=== PATIENT | female | born 1970 | race Asian ===

== ENCOUNTER 2018-04-19 09:40 | Outpatient (CLI) | payer OTHER ==
--- NOTE | 2018-04-22 13:24 | Mammography Report ---
Reason: SCREENING FOR BREAST CANCER Procedure Date: 04/19/2018 Accession Number: [id number] / [id number] Procedure: MGN - Screening Mammo Dig Bilat CPT Code: FULL RESULT: EXAM: Screening Mammo Dig Bilat DATE: 04/19/2018 10:07 AM CLINICAL HISTORY: Routine screening TECHNIQUE: Bilateral CC and MLO views were obtained. COMPARISON: None available FINDINGS: The breasts demonstrate extremely dense parenchyma bilaterally, limiting the sensitivity of mammography.. There is an ovoid 1 cm mass in the posterior third left upper outer quadrant, possibly an intramammary lymph node. No other suspicious masses, clustered microcalcifications, or regions of architectural distortion are identified. IMPRESSION: Negative right breast. Needs additional evaluation left breast by ultrasound. RECOMMENDATION: Left breast ultrasound. BIRADS CATEGORY 0: Needs additional evaluation COMMENT: If prior mammograms become available for comparison, additional imaging/ultrasound may be unnecessary. STANDARD QUALIFYING STATEMENTS: 1. This examination was reviewed with the aid of Computer-Aided Detection (CAD). 2. A negative or benign imaging report should not delay biopsy if clinically suspicious findings are present. Consider surgical consultation if warrented. More than 5% of cancers are not identified by imaging. 3. Dense breasts may obscure an underlying neoplasm.
== END 2018-04-19 09:41 | disposition home or self-care (01) ==
LOC: DI.N 09:40
PROVIDERS: ATTEND Nurse Practitioner
DX: Z12.31 Encounter for screening mammogram for malignant neoplasm of breast (principal); R92.8 Other abnormal and inconclusive findings on diagnostic imaging of breast
CPT/HCPCS: 77067

== ENCOUNTER 2018-05-09 09:45 | Outpatient (CLI) | payer OTHER ==
--- NOTE | 2018-05-09 15:07 | Ultrasound Report ---
Reason: ABN MAMMO - LT SPEC VIEW US Procedure Date: 05/09/2018 Accession Number: [id number] / [id number] Procedure: US - Breast Unilateral Limited CPT Code: FULL RESULT: EXAM: Breast Unilateral Limited DATE: 05/09/2018 10:45 AM CLINICAL HISTORY: Focused diagnostic left breast ultrasound. The patient is recalled from screening for a ovoid 1 cm mass in the posterior third left upper outer quadrant. COMPARISON: 04/19/2018. TECHNIQUE: Targeted ultrasound was performed of the left breast in the area of clinical concern at 3 o'clock and 3 cm distance from the nipple. Color Doppler was employed as appropriate. FINDINGS: A wider than tall simple cyst measuring up to 1 cm is identified in the location corresponding to the mammographic finding, concordant. No suspicious masses are seen. IMPRESSION: Benign findings RECOMMENDATION: Recommend routine annual Screening mammography unless otherwise clinically indicated. BIRADS CATEGORY 2: Benign findings RADIA
== END 2018-05-09 09:46 | disposition home or self-care (01) ==
LOC: DI 09:45
PROVIDERS: ATTEND Nurse Practitioner
DX: N63.21 Unspecified lump in the left breast, upper outer quadrant (principal); R92.8 Other abnormal and inconclusive findings on diagnostic imaging of breast
CPT/HCPCS: 76642

== ENCOUNTER 2019-05-08 13:23 | Outpatient (CLI) | payer OTHER ==
--- NOTE | 2019-05-12 10:57 | Mammography Report ---
Reason: ROUTINE MAMMO Procedure Date: 05/08/2019 Accession Number: [id number] / [id number] Procedure: MGN - Screening Mammo w/Haresh CPT Code: Final Report FULL RESULT: EXAM: Screening Mammo w/Haresh DATE: 05/08/2019 1:48 PM CLINICAL HISTORY: Screening encounter. TECHNIQUE: (B) - Bilateral CC and MLO views were obtained. COMPARISON: 04/19/2018. PARENCHYMAL PATTERN: (D) - The breast(s) demonstrate(s) heterogeneously dense fibroglandular parenchyma. FINDINGS: The 3:00 1 cm left breast mass approximately 5 cm from the nipple which was identified in 2019 is again seen, sonographically defined as a simple cyst, typically benign. There are no suspicious masses, calcifications, or areas of distortion. IMPRESSION: Benign findings. BI-RADS category 2. RECOMMENDATION: (ANNUAL) - Recommend routine annual screening mammography. BI-RADS CATEGORY: (2) - Benign Findings. STANDARD QUALIFYING STATEMENTS: 1. This examination was not reviewed with the aid of Computer-Aided Detection (CAD). 2. A negative or benign imaging report should not preclude biopsy if clinically suspicious findings are present. 3. Dense breasts may obscure an underlying neoplasm. 4. This examination was reviewed with the aid of 3D breast imaging (tomosynthesis).
== END 2019-05-08 13:24 | disposition home or self-care (01) ==
LOC: DI.N 13:23
DX: Z12.31 Encounter for screening mammogram for malignant neoplasm of breast (principal)
CPT/HCPCS: 77063; 77067

== ENCOUNTER 2020-03-04 11:33 | Outpatient (CLI) | payer OTHER ==
[2020-03-04 14:47] LABS: BASOPHILS % (AUTO) 0.6 %; EOSINOPHILS # (AUTO) 0.3 10^3/uL (0.0-0.7); EOSINOPHILS % (AUTO) 5.7 %; HGB - HEMOGLOBIN 13.9 g/dL (12.0-16.0); LYMPHOCYTES # (AUTO) 1.7 10^3/uL (1.5-3.5); LYMPHOCYTES % (AUTO) 35.3 %; MEAN CORPUSCULAR HGB CONC 33.3 g/dL (32.0-36.0); MEAN PLATELET VOLUME 10.9 fL (7.9-10.8); MONOCYTES # (AUTO) 0.3 10^3/uL (0.0-1.0); MONOCYTES % (AUTO) 5.3 %; NEUTROPHILS # (AUTO) 2.6 10^3/uL (1.5-6.6); NEUTROPHILS % (AUTO) 52.9 %; PLT - PLATELET COUNT 188 10^3/uL (130-450); RED BLOOD COUNT 4.09 10^6/uL (4.20-5.40); WHITE BLOOD COUNT 4.9 x10^3/uL (4.8-10.8)
[2020-03-04 15:04] LABS: ALBUMIN 4.1 g/dL (3.2-5.5); ALBUMIN/GLOBULIN RATIO 1.6 (1.0-2.2); ALKALINE PHOSPHATASE 64 IU/L (42-121); ALT ALANINE AMINOTRANSFERASE 33 IU/L (10-60); AST ASPARTATE AMINOTRANSFERASE 26 IU/L (10-42); BILIRUBIN,TOTAL 0.8 mg/dL (0.2-1.0); BUN - BLOOD UREA NITROGEN 16 mg/dL (6-20); CALCIUM 8.9 mg/dL (8.5-10.3); CARBON DIOXIDE - CO2 27 mmol/L (21-32); CHLORIDE 104 mmol/L (101-111); CHOL/HDL RATIO 2.9 (<4.4); CHOLESTEROL 212 mg/dL; CREATININE 0.5 mg/dL (0.4-1.0); GLUCOSE 97 mg/dL (70-100); HDL CHOLESTEROL 72 mg/dL; LDL CHOLESTEROL,CALCULATED 129 mg/dL; LDL/HDL RATIO 1.8 (<4.4); SODIUM 138 mmol/L (135-145); TOTAL PROTEIN 6.7 g/dL (6.7-8.2); VLDL CHOLESTEROL 11 mg/dL
== END 2020-03-04 11:34 | disposition home or self-care (01) ==
LOC: LAB.N 11:33
PROVIDERS: ATTEND Nurse Practitioner Family
DX: Z00.00 Encounter for general adult medical examination without abnormal findings (principal); Z71.89 Other specified counseling
CPT/HCPCS: 36415; 80053; 80061; 83721; 84443; 85025; 86317; 86735; 86762; 86765; 86787

== ENCOUNTER 2020-03-19 16:14 | Outpatient (CLI) | payer OTHER ==
[2020-03-19 19:07] LABS: FOLATE 22.99 ng/mL (5.90 - >24.8)
== END 2020-03-19 23:59 | disposition home or self-care (01) ==
LOC: LAB.WCP 16:14
PROVIDERS: ATTEND Nurse Practitioner Family
DX: D53.9 Nutritional anemia, unspecified (principal)
CPT/HCPCS: 36415; 82607; 82746

== ENCOUNTER 2020-03-28 21:17 | Emergency (ER) | payer OTHER ==
--- NOTE | 2020-03-28 21:34 | ED Physician Documentation ---
History of Present Illness - Stated complaint Stated Complaint: FEVER - Chief complaint Chief Complaint: Fever - History obtained from History obtained from: Patient - History of Present Illness Timing: Today Pain level max: 0 Pain level now: 0 - Additonal information Additional information: c/o mild fatigue, myalgias since earlier today. Tmax at home 100.0. Review of Systems Constitutional: reports: Myalgias, Fatigue. denies: Fever (Tmax 100.0 at home (37.9 in ED triage)), Chills, Sweats Throat: denies: Sore throat Respiratory: denies: Dyspnea, Cough : denies: Dysuria PD PAST MEDICAL HISTORY - Past Medical History Past Medical History: No - Present Medications Home Medications: Ambulatory Orders Medication Instructions Recorded Confirmed No Known Home Medications 03/28/20 03/28/20 - Allergies Allergies/Adverse Reactions: Allergies Allergy/AdvReac Type Severity Reaction Status Date / Time No Known Drug Allergies Allergy Verified 03/28/20 21:23 - Living Situation Living Situation: reports: With spouse/s.o. Living Arrangement: reports: At home PD ED PE NORMAL - Vitals Vital signs reviewed: Yes - General General: Alert and oriented X 3, No acute distress, Well developed/nourished - HEENT HEENT: Moist mucous membranes - Neck Neck: Supple, no meningeal sign - Cardiac Cardiac: RRR, No murmur - Respiratory Respiratory: No respiratory distress, Clear bilaterally Results - Vitals Vitals: Vital Signs - 24 hr 03/28/20 03/28/20 21:23 23:20 Temperature 37.9 C 37.4 C Heart Rate 92 86 Respiratory 14 16 Rate Blood Pressure 161/75 H 143/78 H O2 Saturation 99 98 Oxygen O2 Source Room air - Labs Labs: Laboratory Tests 03/28/20 22:12 Nasal Adenovirus (PCR) NOT DETECTED Nasal B. parapertussis DNA (PCR) NOT DETECTED Nasal Coronavir 229E PCR NOT DETECTED Nasal Coronavir HKU1 PCR NOT DETECTED Nasal Coronavir NL63 PCR NOT DETECTED Nasal Coronavir OC43 PCR NOT DETECTED Nasal Enterovir/Rhinovir PCR NOT DETECTED Nasal Influenza B PCR NOT DETECTED Nasal Influenza A PCR NOT DETECTED Nasal Parainfluen 1 PCR NOT DETECTED Nasal Parainfluen 2 PCR NOT DETECTED Nasal Parainfluen 3 PCR NOT DETECTED Nasal Parainfluen 4 PCR NOT DETECTED Nasal RSV (PCR) NOT DETECTED Nasal B.pertussis DNA PCR NOT DETECTED Nasal C.pneumoniae (PCR) NOT DETECTED Javier Human Metapneumo PCR NOT DETECTED Nasal M.pneumoniae (PCR) NOT DETECTED Nasal SARS-CoV-2 (PCR) NOT DETECTED PD MEDICAL DECISION MAKING - ED course Complexity details: reviewed results, re-evaluated patient, considered differential, d/w patient ED course: Patient presents with mild fatigue, myalgias and Tmax at home 100.0 (37.9 in ED triage); her primary concern is COVID. Her respiratory panel, including COVID- 19, is negative Departure - Departure Disposition: 01 Home, Self Care Clinical Impression: Fever Qualifiers: Fever type: unspecified Qualified Code(s): R50.9 - Fever, unspecified Condition: Good Instructions: ED Fever Unconf Cause Follow-Up: DANTE BALDERAS, MSN, [employer] [Primary Care Provider] - Discharge Date/Time: 03/28/20 23:21
[2020-03-28 23:07] LABS: C. PNEUMONIAE- RESP PCR PANEL NOT DETECTED
[2020-03-28 23:21] VITALS: BP 143/78
== END 2020-03-28 23:21 | disposition home or self-care (01) ==
LOC: ED 21:17
DX: R50.9 Fever, unspecified (principal); R53.83 Other fatigue; M79.10 Myalgia, unspecified site; Z20.822 Contact with and (suspected) exposure to COVID-19
CPT/HCPCS: 0202U; 99283

== ENCOUNTER 2020-07-20 10:07 | Outpatient (CLI) | payer OTHER ==
--- NOTE | 2020-07-22 08:30 | Mammography Report ---
BILATERAL DIGITAL SCREENING MAMMOGRAM 3D/2D: 07/20/2020 CLINICAL: Routine screening. Comparison is made to exams dated: 05/08/2019 mammogram and 04/19/2018 mammogram - [facility]. The tissue of both breasts is heterogeneously dense. This may lower the sensitivity of marcela mography. There is an irregular equal density asymmetry with an indistinct margin in the left breast posterior depth inferior region seen on the mediolateral oblique view only. No other significant masses, calcifications, or other findings are seen in either breast. IMPRESSION: INCOMPLETE: NEEDS ADDITIONAL IMAGING EVALUATION The irregular equal density asymmetry in the left breast is indeterminate. Mediolateral and spot com pression views as well as additional views with possible ultrasound are recommended. This exam was interpreted at Station ID: [id number]. NOTE: For mammograms, a report in lay terms will be sent to the patient. Approximately 15% of breast malignancies will not be visualized mammographically. In the management of a palpable breast mass, a negative mammogram must not discourage biopsy of a clinically suspicious lesion. Electronically Signed By: Zana Brito M.D. ddp/:07/20/2020 10:49:37 ACR BI-RADS Category 0: Incomplete 3340F PARENCHYMAL PATTERN: (D) - The breast(s) demonstrate(s) heterogeneously dense fibroglandular martell jhaveri. BI-RADS CATEGORY: (0) - 0 Mammo and US [id number] Immediate follow-up LATERALITY: (B)
== END 2020-07-20 10:08 | disposition home or self-care (01) ==
LOC: DI 10:07
DX: Z12.31 Encounter for screening mammogram for malignant neoplasm of breast (principal); R92.8 Other abnormal and inconclusive findings on diagnostic imaging of breast

== ENCOUNTER 2020-08-12 12:38 | Outpatient (CLI) | payer OTHER ==
--- NOTE | 2020-08-13 11:57 | Mammography Report ---
UNILATERAL LEFT DIGITAL DIAGNOSTIC MAMMOGRAM 3D/2D: 08/12/2020 CLINICAL: Patient returns today to evaluate an architectural distortion in the left breast. Comparison is made to exams dated: 07/20/2020 mammogram, 05/08/2019 mammogram, 05/09/2018 ultrasound, a nd 04/19/2018 mammogram - [facility]. The tissue of left breast is heterogeneously d ense. This may lower the sensitivity of mammography. The possible irregular equal density asymmetry with an indistinct margin in the left breast posterior depth inferior region seen on the mediolateral oblique view is not seen in additional views and is l ess prominent on the current study. No other significant masses or calcifications are seen in the breast. IMPRESSION: INCOMPLETE: NEEDS ADDITIONAL IMAGING EVALUATION The possible irregular equal density asymmetry in the left breast most likely is fibroglandular tissu e but remains indeterminate. Ultrasound is recommended for full evaluation of this area. This was pe rformed immediately following this exam. This exam was interpreted at Station ID: [id number]. NOTE: For mammograms, a report in lay terms will be sent to the patient. Approximately 15% of breast malignancies will not be visualized mammographically. In the management of a palpable breast mass, a negative mammogram must not discourage biopsy of a clinically suspicious lesion. Electronically Signed By: Shayla garcia/:08/12/2020 13:31:10 ACR BI-RADS Category 0: Incomplete 3340F PARENCHYMAL PATTERN: (D) - The breast(s) demonstrate(s) heterogeneously dense fibroglandular parfreddyy ma. BI-RADS CATEGORY: (0) - 0 Ultrasound [id number] Immediate follow-up LATERALITY: (B)
--- NOTE | 2020-08-13 11:57 | Ultrasound Report ---
LIMITED ULTRASOUND OF LEFT BREAST: 08/12/2020 CLINICAL: Patient returns today to evaluate a focal asymmetry in the left breast. Comparison is made to exams dated: 08/12/2020 mammogram, 07/20/2020 mammogram, 05/08/2019 mammogram, 04/13 ultrasound, and 04/19/2018 mammogram - [facility] with [facility]. Color flow and real-time ultrasound of the left breast 4-8 o'clock region were performed. Rudolph scal e images of the real-time examination were reviewed. There are two cystic structures in the left breast at 5 o'clock posterior depth 6 cm from the nipple, the larger measures 0.5 cm x 0.5 cm x 0.4 cm and is hypoechoic with internal echoes. Color flow im aging demonstrates that there is no vascularity present. The smaller is a simple cyst measuring 0.3 cm. It is unclear if these findings correspond to the screening mammogram finding which partilally re solves with special views. IMPRESSION: PROBABLY BENIGN The 0.5 cm complicated cyst in the 4:00 left breast is probably benign and is unclear if it correspon ds to the mammogram finding. A follow-up left mammogram and an ultrasound in 6 months is recommended to demonstrate stability of a ll findings Findings and recommendations were conveyed to the patient at time of exam. . This exam was interpreted at Station ID: [id number]. Electronically Signed By: Shayla garcia/:08/12/2020 13:59:06 Ultrasound BI-RADS: 3 Probably benign BI-RADS CATEGORY: (3) - 3 Mammo and US [id number] 6 month follow-up LATERALITY: (L)
== END 2020-08-12 12:39 | disposition home or self-care (01) ==
LOC: DI 12:38
PROVIDERS: ATTEND Nurse Practitioner Family
DX: R92.8 Other abnormal and inconclusive findings on diagnostic imaging of breast (principal); N60.02 Solitary cyst of left breast

== ENCOUNTER 2020-11-03 10:07 | Outpatient (CLI) | payer OTHER ==
[2020-11-03 10:58] VITALS: BP 105/70
--- NOTE | 2020-11-03 10:58 | SLEEP CARE CONSULTATION ---
Information from patient questionnaire entered by Teresa Jimenez. I have reviewed and concur with the information entered by Teresa Jimenez. This document represents the service I personally performed and the decisions made by me, Rocío Lea ARNP. History of Present Illness Service Date and Time: 11/03/2020 1007 Reason for Visit: New patient Chief Complaint: reports: Unrefreshed sleep, Snoring, Excessive daytime sleepiness, Frequent awakenings at night Date of Onset: many years, 3 Usual bedtime: 12 am Time it takes to fall asleep: 30 minutes Snores at night: Yes Observed to quit breathing while asleep: No (doesn't sleep in same room with ) Sleeps alone due to snoring: Yes Number of times waking at night: 4 Reasons for waking at night: reports: Bathroom. denies: Choking, Gasping for air Toss, Turn, or Twitch while sleeping: Yes Recalls having dreams: Yes Usually gets out of bed at: anytime; ususally about 12 noon Feels refreshed in the morning: Yes (sometimes) Morning headache: No Sleepy or fatigued during the day: Yes Ever fallen asleep while driving: Yes (drowsy driving, no accidents) Takes day naps: Yes (daily for about 30 mins to 1 hour) Dreams during day naps: No Prior sleep studies: No Additional HPI information: I had the pleasure of seeing BEBA HARVEY today regarding the possibility of her having a sleep disorder. Her current complaints are frequent night awakenings. She states she "doesn't have good sleep" and has high blood pressure. Her is a nurse practitioner who has been on a PAP machine for many years. He has told her that she snores loudly and they sleep in separate rooms. He has not told her she has any pauses in breathing or gasping/choking in her sleep. They think that maybe her hypertension is due to not sleeping well and that she may have sleep apnea. She feels like she needs to sleep around the clock to feel rested. She takes a nap every day. She does not go to sleep until about midnight and then gets up about noon or later if she wants. She has no set schedule and does not work outside of home. She states her parents both snored loudly when she was a child. They lived in [place] and were never tested for sleep apnea. 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 Patient is and lives in [place]. Have you smoked in the past 12 months: No Alcohol use: No Caffeine use: No Family History Family history of sleep disordered breathing: Yes Family Hx Sleep Apnea: Mother: Snoring, Father: Snoring Allergies and Home Medications Drug allergies reviewed: Yes (NKDA) Home medication list reviewed: Yes Allergy and home medication list: Amlodipine Besylate 5 mg daily Review of Systems Cardiovascular: reports: high blood pressure Gastrointestinal: denies: heartburn Urinary: reports: frequency Psychiatric: denies: anxiety, depression Ear/Nose/Throat: denies: injury to nose, tonsillectomy, wisdom teeth removed Immunologic: reports: sneezing, allergies to food or environment Physical Exam Blood Pressure: 105/70 Cuff size: regular Heart Rate: 63 O2 Saturation: 100 Height: 5 ft 6 in Weight: 132 lb Body Mass Index: 21.3 BMI Classification: Healthy weight Neck circumference: 13 (inches) Mouth and throat: narrow oropharynx Soft palate: long Hard palate: normal Uvula: normal Uvula visualization: 50% Mallampati Class II Tongue: enlarged in size with teeth coley on lateral edges Tonsils: absent bilaterally Neck: normal w/o lymphadenopathy or thyromegaly Heart: regular rate and rhythm, murmur Lungs: clear bilaterally Impression and Plan 1. Suspected Obstructive Sleep Apnea-Hypopnea Syndrome, as suggested by a history of loud and irregular snoring, frequent awakening during the night, unrefreshed sleep, cognitive impairment, and excessive daytime sleepiness. Narrow oropharynx and obesity are common predisposing factors for obstructive sleep apnea-hypopnea syndrome. I recommend proceeding to polysomnography to confirm the diagnosis and to assess severity. If the patient has significant sleep disordered breathing, a manual CPAP titration study will also be performed to find the optimal treatment pressure. I informed the patient of what the sleep studies involve and after some discussion, obtained agreement to proceed. The pathophysiology of obstructive sleep apnea-hypopnea syndrome was discussed with the patient and health risks of cardiovascular and cerebrovascular disease if not treated. AAS brochure for obstructive sleep apnea-hypopnea syndrome given and reviewed. Risks of drowsy driving discussed in detail and patient advised to avoid long distance driving and to cotton puller at the first sign of drowsiness. Patient agreed to plan. * Schedule polysomnography +- manual CPAP titration study and return in 1-2 weeks after the study to discuss result and initiate therapy. * Avoid long distance driving or driving when feeling sleepy. * Avoid alcohol, sedative and muscle relaxant around bedtime. * Attempt to lose weight. * Review instructions provided by trained office staff on how to prepare for the sleep study. * Return for follow-up after sleep study completed. Counseling Topics: Weight control (at a healthy weight) Visit Type: In Office Time Spent with Patient (minutes): 31 Provider Statement: I spent 100% of the Face to Face Visit with the patient with greater than 50% spent counseling the patient and coordination of care.
== END 2020-11-03 10:08 | disposition home or self-care (01) ==
LOC: SC 10:07
PROVIDERS: ATTEND Nurse Practitioner Family
DX: G47.10 Hypersomnia, unspecified (principal); G47.8 Other sleep disorders; R06.83 Snoring; R41.89 Other symptoms and signs involving cognitive functions and awareness
CPT/HCPCS: 99203; 99212

== ENCOUNTER 2020-11-16 10:06 | Day surgery (SDC) | payer OTHER ==
[2020-11-16 10:25] LABS: HCG UR QUAL NEGATIVE
[2020-11-16] MEDS ORDERED: LACTATED RINGERS 1,000 ML IV ONE ×2 (10:38→12:14)
[2020-11-16] MEDS ORDERED: fentaNYL 250 MCG/5 ML VIAL ONE (11:35)
[2020-11-16] MEDS ORDERED: MIDAZOLAM 2 MG/2 ML VIAL ONE ×2 (11:35→11:56)
[2020-11-16 12:58] VITALS: BP 114/56
== END 2020-11-16 10:07 | disposition home or self-care (01) ==
LOC: SDS 10:06
PROVIDERS: ATTEND Surgery
DX: Z12.11 Encounter for screening for malignant neoplasm of colon (principal); K57.30 Diverticulosis of large intestine without perforation or abscess without bleeding; K64.8 Other hemorrhoids; K64.4 Residual hemorrhoidal skin tags
CPT/HCPCS: 45378; 81025; J3010; J7120

== ENCOUNTER 2021-02-15 09:33 | Outpatient (CLI) | payer OTHER | END 2021-02-15 09:34 | disposition home or self-care (01) | LOC: SC 09:33 | PROVIDERS: ATTEND Nurse Practitioner Family | DX: G47.10 Hypersomnia, unspecified (principal); G47.8 Other sleep disorders; R06.83 Snoring; R09.02 Hypoxemia; I10 Essential (primary) hypertension | CPT/HCPCS: 95806 ==

== ENCOUNTER 2021-02-17 12:30 | Outpatient (CLI) | payer OTHER | END 2021-02-17 23:59 | disposition home or self-care (01) | LOC: SC 12:30 | PROVIDERS: ATTEND Nurse Practitioner Family | DX: G47.10 Hypersomnia, unspecified (principal); G47.8 Other sleep disorders; R06.83 Snoring; R41.89 Other symptoms and signs involving cognitive functions and awareness | CPT/HCPCS: 95806 ==

== ENCOUNTER 2021-03-15 12:53 | Outpatient (CLI) | payer OTHER ==
[2021-03-15 13:30] VITALS: BP 134/74
--- NOTE | 2021-03-15 13:30 | SLEEP CARE CONSULTATION ---
Information from patient questionnaire entered by Ginette Gastelum MA. I have reviewed and concur with the information entered by Ginette Gastelum MA. This document represents the service I personally performed and the decisions made by , Rocío Lea ARNP. History of Present Illness Service Date and Time: 03/15/2021 1253 Initial [place] Sleepiness Scale score: 15 Current [place] Sleepiness Scale score: 16 (2021) Additional HPI information: BEBA HARVEY returns for follow up and results of the recently performed home sleep study. The patient was informed of the following findings: No significant sleep disordered breathing with an average AHI of 2.6 and dami oxygen saturation of 88%. I explained the pathophysiology behind obstructive sleep apnea. Patient does not have sleep apnea and was advised how weight gain could increase the risk of developing sleep apnea in the future. Patient has light snoring. Snoring can be reduced by weight loss. Weight loss is best achieved with diet consult. Patient instructed to contact PCP for referral. Snoring can also be treated with an oral appliance from a dentist. Advised to check insurance coverage. In addition, an ENT evaluation can be do to see if other treatment is indicated. Patient counseled not drink alcohol less than 4 hours before bedtime as it can increase snoring and apnea. Patient was cautioned about risks of drowsy driving until sleepiness symptoms resolve. Sleep Study - Results Prior sleep studies: No Polysomnography/Home Sleep Study results: Physician Impression: The quality of the study is good. The length of the study is adequate (> 240 minutes). Please also see the tabulated and graphic data. 1. No significant sleep disordered breathing, with an AHI of 2.6/hr and dami SaO2 of 88%. During the study, the patient had 6 apneas (6 obstructive, 0 central, 0 mixed) and 14 hypopneas. The longest episode lasted 80.5 seconds. The few respiratory events occurred more frequently during supine sleep (supine AHI was 3.9 and non-supine, 0.66). 2. Hypoxemia (ICD-10 R09.02), minimal, with the lowest oxygen saturation of 88 % and 0.2 minutes with SaO2 under 90%. Baseline oxygen saturation was normal (Average oxygen saturation was 95%). Allergies and Home Medications Home medication list reviewed: Yes (no changes) Review of Systems Review of systems same as previous: Yes (no changes) Physical Exam Vital signs obtained and entered by: Miles GASTELUM CMA AAKEN Blood Pressure: 134/74 (LEFT) Cuff size: wrist Heart Rate: 70 O2 Saturation: 100 (PAPER MASK) Height: 5 ft 4 in Weight: 128 lb 6.4 oz Body Mass Index: 22.0 BMI Classification: Healthy weight Impression and Plan 1. Suspected Obstructive Sleep Apnea-Hypopnea Syndrome, as suggested by a history of loud and irregular snoring, fatigue and excessive daytime sleepiness. Her [place] is 16/24. She completed a HST which was not conclusive for sleep disordered breathing but because of her level of fatigue and her supine AHI of 3.9, I would like to retest with an in lab PSG. Patient voice agreement. The pathophysiology of obstructive sleep apnea-hypopnea syndrome was discussed with the patient and health risks of cardiovascular and cerebrovascular disease if n ot treated. Risks of drowsy driving discussed in detail and patient advised to avoid long distance driving and to machine puller over at the first sign of drowsiness. Patient also encouraged to try to sleep on her side and use positioning belt like Zzoma to keep off her back to see if this will control her snoring at home. Patient agreed to plan. * Schedule polysomnography. * Avoid long distance driving or driving when feeling sleepy. * Avoid alcohol, sedative and muscle relaxant around bedtime. * Maintain a healthy weight. * Review instructions provided by trained office staff on how to prepare for the sleep study. * Return for follow-up after sleep study completed. Counseling Topics: Sleeping position, Weight control Visit Type: In Office Time Spent with Patient (minutes): 19 Provider Statement: I spent 100% of the Face to Face Visit with the patient with greater than 50% spent counseling the patient and coordination of care.
== END 2021-03-15 12:54 | disposition home or self-care (01) ==
LOC: SC 12:53
PROVIDERS: ATTEND Nurse Practitioner Family
DX: R06.83 Snoring (principal); G47.8 Other sleep disorders; G47.10 Hypersomnia, unspecified; R41.89 Other symptoms and signs involving cognitive functions and awareness
CPT/HCPCS: 99212

== ENCOUNTER 2021-03-17 08:45 | Outpatient (CLI) | payer OTHER ==
--- NOTE | 2021-03-18 08:18 | Mammography Report ---
UNILATERAL LEFT DIGITAL DIAGNOSTIC MAMMOGRAM 3D/2D: 03/17/2021 CLINICAL: Patient returns for a 6 month follow up of the left breast. Comparison is made to exams dated: 08/12/2020 ultrasound, 08/12/2020 mammogram, 07/20/2020 mammogram, 04/13 mammogram, 05/09/2018 ultrasound, and 04/19/2018 mammogram - [facility]. The t issue of left breast is heterogeneously dense. This may lower the sensitivity of mammography. The possible irregular asymmetry in the left breast posterior depth inferior region seen on the medio lateral oblique view only is no longer seen and is consistent with fibroglandular tissue. No other significant masses or calcifications are seen in the breast. IMPRESSION: INCOMPLETE: NEEDS ADDITIONAL IMAGING EVALUATION Targeted ultrasound is recommended for follow up of the complicated cyst in the left breast at the 4 o'clock position 6 cm from the nipple seen on the prior ultrasound dated 08/12/2020. The ultrasound was originally scheduled on the same day as this exam, but due to delays the patient will return for fol low up ultrasound at the earliest possible convenience. This exam was interpreted at Station ID: [id number]. NOTE: For mammograms, a report in lay terms will be sent to the patient. Approximately 15% of breast malignancies will not be visualized mammographically. In the management of a palpable breast mass, a negative mammogram must not discourage biopsy of a clinically suspicious lesion. Electronically Signed By: Brandon cooley/luis:03/17/2021 11:33:48 ACR BI-RADS Category 0: Incomplete 3340F PARENCHYMAL PATTERN: (D) - The breast(s) demonstrate(s) heterogeneously dense fibroglandular martell jhaveri. BI-RADS CATEGORY: (0) - 0 Ultrasound [id number] Immediate follow-up LATERALITY: (L)
== END 2021-03-17 08:46 | disposition home or self-care (01) ==
LOC: DI 08:45
PROVIDERS: ATTEND Nurse Practitioner Family
DX: N60.02 Solitary cyst of left breast (principal)

== ENCOUNTER 2021-03-29 08:17 | Outpatient (CLI) | payer OTHER ==
--- NOTE | 2021-03-30 11:57 | Ultrasound Report ---
LIMITED ULTRASOUND OF LEFT BREAST: 03/29/2021 CLINICAL: Short term follow up for the left breast. Comparison is made to exams dated: 03/17/2021 mammogram, 08/12/2020 ultrasound, 08/12/2020 mammogram, 07/20 mammogram, 05/08/2019 mammogram, and 05/09/2018 ultrasound - Located within [facility]. Color flow and real-time ultrasound of the left breast 4 o'clock region were performed on the areas of interest. Rudolph scale images of the real-time examination were reviewed. There is a stable 0.5 cm x 0.4 cm x 0.5 cm oval cyst in the left breast at 4 o'clock middle depth 6 c m from the nipple. This oval cyst is hypoechoic with a well-defined boundary, internal echoes, and p osterior acoustic enhancement. Color flow imaging demonstrates that there is no vascularity present. There is an adjacent 0.3 x 0.3 x 0.3 cm small round cyst or bilobed component of the larger cyst wit h demonstrates indistinct internal echoes. No associated vascularity on color Doppler interrogation. This is stable in appearance. IMPRESSION: PROBABLY BENIGN The bilobed or 2 adjacented cysts in the left breast are consistent with complicated cysts and are pr obably benign. A follow-up ultrasound in 6 months is recommended. A follow-up ultrasound in 6 months is recommended to demonstrate stability. This exam was interpreted at Station ID: [id number]. Electronically Signed By: Zana Brito M.D. ddp/:03/29/2021 11:29:06 Ultrasound BI-RADS: 3 Probably benign BI-RADS CATEGORY: (3) - 3 Ultrasound [id number] 6 month follow-up LATERALITY: (B)
== END 2021-03-29 08:18 | disposition home or self-care (01) ==
LOC: DI 08:17
PROVIDERS: ATTEND Nurse Practitioner Family
DX: R92.8 Other abnormal and inconclusive findings on diagnostic imaging of breast (principal); N60.02 Solitary cyst of left breast

== ENCOUNTER 2021-05-10 09:55 | Outpatient (CLI) | payer OTHER ==
[2021-05-10 12:04] LABS: BASOPHILS # (AUTO) 0.1 10^3/uL (0.0-0.1); EOSINOPHILS # (AUTO) 0.3 10^3/uL (0.0-0.7); EOSINOPHILS % (AUTO) 5.7 %; HCT - HEMATOCRIT 40.8 % (37.0-47.0); LYMPHOCYTES # (AUTO) 1.6 10^3/uL (1.5-3.5); LYMPHOCYTES % (AUTO) 31.3 %; MEAN CORPUSCULAR HEMOGLOBIN 33.9 pg (27.0-31.0); MEAN CORPUSCULAR HGB CONC 34.3 g/dL (32.0-36.0); MEAN CORPUSCULAR VOLUME 98.8 fL (81.0-99.0); MEAN PLATELET VOLUME 10.3 fL (7.9-10.8); MONOCYTES # (AUTO) 0.3 10^3/uL (0.0-1.0); MONOCYTES % (AUTO) 6.5 %; NEUTROPHILS # (AUTO) 2.9 10^3/uL (1.5-6.6); NEUTROPHILS % (AUTO) 55.3 %; PLT - PLATELET COUNT 181 10^3/uL (130-450); RED BLOOD COUNT 4.13 10^6/uL (4.20-5.40); RED CELL DISTRIBUTION WIDTH 11.7 % (12.0-15.0); WHITE BLOOD COUNT 5.2 x10^3/uL (4.8-10.8)
[2021-05-10 12:28] LABS: THYROID STIMULATING HORMONE 1.8 uIU/mL (0.34-5.60)
[2021-05-10 12:35] LABS: ALBUMIN 4.3 g/dL (3.2-5.5); ALBUMIN/GLOBULIN RATIO 1.3 (1.0-2.2); ALKALINE PHOSPHATASE 59 IU/L (42-121); ALT ALANINE AMINOTRANSFERASE 46 IU/L (10-60); AST ASPARTATE AMINOTRANSFERASE 48 IU/L (10-42); BILIRUBIN,TOTAL 0.6 mg/dL (0.2-1.0); BUN - BLOOD UREA NITROGEN 21 mg/dL (6-20); CALCIUM 9.3 mg/dL (8.5-10.3); CARBON DIOXIDE - CO2 28 mmol/L (21-32); CHLORIDE 105 mmol/L (101-111); CHOL/HDL RATIO 3.5 (<4.4); CHOLESTEROL 206 mg/dL; CREATININE 0.6 mg/dL (0.4-1.0); GFR - MDRD 105 (>89); GLUCOSE 106 mg/dL (70-100); HDL CHOLESTEROL 59 mg/dL; LDL CHOLESTEROL,CALCULATED 135 mg/dL; LDL/HDL RATIO 2.3 (<4.4); POTASSIUM 3.9 mmol/L (3.5-5.0); SODIUM 141 mmol/L (135-145); TOTAL PROTEIN 7.5 g/dL (6.7-8.2); TRIGLYCERIDES 60 mg/dL; VLDL CHOLESTEROL 12 mg/dL
== END 2021-05-10 09:56 | disposition home or self-care (01) ==
LOC: LAB.N 09:55
PROVIDERS: ATTEND Physician Assistant Medical
DX: Z00.00 Encounter for general adult medical examination without abnormal findings (principal); E78.00 Pure hypercholesterolemia, unspecified
CPT/HCPCS: 36415; 80053; 80061; 83721; 84443; 85025

== ENCOUNTER 2021-05-11 20:30 | Outpatient (CLI) | payer OTHER | END 2021-05-11 23:59 | disposition home or self-care (01) | LOC: SC 20:30 | PROVIDERS: ATTEND Nurse Practitioner Family | DX: R06.83 Snoring (principal); R53.83 Other fatigue; G47.10 Hypersomnia, unspecified | CPT/HCPCS: 95810 ==

== ENCOUNTER 2021-05-23 08:00 | Outpatient (CLI) | payer OTHER ==
[2021-05-23 18:20] LABS: BILIRUBIN,URINE NEGATIVE (NEGATIVE); GLUCOSE, URINE (UA) NEGATIVE (NEGATIVE); KETONES,URINE (UA) NEGATIVE (NEGATIVE); LEUKOCYTE ESTERASE, URINE NEGATIVE (NEGATIVE); NITRITE,URINE NEGATIVE (NEGATIVE); OCCULT BLOOD,URINE TRACE-INTA (NEGATIVE); PROTEIN,URINE NEGATIVE (NEGATIVE); UROBILINOGEN,URINE 0.2 (NORMAL) E.U./dL (NORMAL)
[2021-05-23 18:23] LABS: CLARITY,URINE CLOUDY (CLEAR)
[2021-05-23 19:21] LABS: AMORPHOUS SEDIMENT,UR Few /LPF; BACTERIA,URINE Few /HPF (None Seen); RBC,URINE 0-5 /HPF (0-5); SQUAMOUS EPITHELIAL CELL,UR RARE Squamous (<= Few); WBC,URINE 0-3 /HPF (0-5)
[2021-05-23 19:22] LABS: CRYSTALS,URINE 6-10 Calcium Oxalate /LPF
== END 2021-05-23 23:59 ==
LOC: LAB.R 08:00
PROVIDERS: ATTEND Nurse Practitioner
DX: R31.9 Hematuria, unspecified (principal)
CPT/HCPCS: 81001; 81003; 87086

== ENCOUNTER 2021-06-01 20:53 | Outpatient (CLI) | payer OTHER ==
--- NOTE | 2021-06-02 09:40 | Ultrasound Report ---
PROCEDURE: Retroperitoneal INDICATIONS: HEMATURIA TECHNIQUE: Real-time scanning was performed of the retroperitoneal organs, with image documentation. COMPARISON: None. FINDINGS: Kidneys: Kidneys are normal in size. Right kidney measures 10 point cm long; left kidney measures 1 0.0 cm long. Right renal cortical thickness is 1.7 cm; left renal cortical thickness is 1.7 cm. No solid masses or hydronephrosis. Punctate areas of increased echogenicity are noted bilaterally. There is a focus of decreased echogenicity within the inferior right renal pole measuring 3.2 x 2.1 x 2.1 cm. Bladder: Prevoid volume 4 89 cc, post void residual 8 cc. Ureteral jets are identified bilaterally. N o focal bladder masses are identified. IMPRESSION: Punctate nonobstructing foci bilaterally suspected to represent calcifications. Focus of decreased echogenicity is noted within the inferior right renal pole. It is suboptimally vis ualized. Pelvis could represent a simple cyst, is not well-characterized. CT or MRI with renal protoc ol is recommended for further evaluation for determination of simple/complex cyst versus other etiolo gy. Reviewed by: Kimmie Ashton MD on 06/02/2021 9:39 AM PDT Approved by: Kimmie Ashton MD on 06/02/2021 9:39 AM PDT Station ID: [id number]
== END 2021-06-01 20:54 | disposition home or self-care (01) ==
LOC: DI 20:53
PROVIDERS: ATTEND Nurse Practitioner
DX: R31.9 Hematuria, unspecified (principal)

== ENCOUNTER 2021-07-27 08:30 | Outpatient (CLI) | payer OTHER ==
[2021-07-27 08:56] VITALS: BP 150/97
--- NOTE | 2021-07-27 08:56 | SLEEP CARE CONSULTATION ---
Information from patient questionnaire entered by Ginette Gastelum MA. I have reviewed and concur with the information entered by Ginette Gastelum MA. This document represents the service I personally performed and the decisions made by , Rocío Lea ARNP. History of Present Illness Service Date and Time: 07/27/2021 0830 Initial [place] Sleepiness Scale score: 15 Current [place] Sleepiness Scale score: 16 (07/2021) Additional HPI information: BEBA HARVEY returns for follow up and results of the recently performed polysomnography. The patient was informed of the following findings: No significant sleep disordered breathing with an average AHI of 2.2 and dami oxygen saturation of 91%. Patient had 2 prolonged awakenings after sleep onset during the study. I explained the pathophysiology behind obstructive sleep apnea. Patient does not have sleep apnea and was advised how weight gain could increase the risk of developing sleep apnea in the future. Patient has light snoring. Patient instructed to contact PCP for referral. Snoring can also be treated with an oral appliance from a dentist. Advised to check insurance coverage. In addition, an ENT evaluation can be do to see if other treatment is indicated. Patient does not drink alcohol. Patient was cautioned about risks of drowsy driving until sleepiness symptoms resolve. Sleep Study - Results Type of Sleep Study: Polysomnography (F/ U POLY, 05/11/2021 [facility],) Prior sleep studies: No Polysomnography/Home Sleep Study results: IMPRESSION: The quality of the study is good. The patient had slightly reduced sleep efficiency due to two prolonged awakenings after the sleep onset. The sleep architecture was relatively normal considering the first-night effect. Respiratory monitoring showed no significant sleep disordered breathing (AHI = 2.2) or hypoxia (dami oxygen saturation of 91%). The few respiratory events occurred mainly during supine sleep (supine AHI = 3.2; non-supine = 0.43). Snore was infrequent and light in intensity. There was no significant periodic leg movement of sleep. Cardiac rhythm was normal sinus rhythm without significant arrhythmia. No abnormal behavior (parasomnia) observed during the night. Allergies and Home Medications Known drug allergies: No Drug allergies reviewed: Yes Home medication list reviewed: Yes (no changes) Allergy and home medication list: Allergies No Known Drug Allergies Allergy (Verified 03/28/20 21:23) Review of Systems Review of systems same as previous: Yes (no changes) Physical Exam Vital signs obtained and entered by: Miles GASTELUM CMA AAKEN Blood Pressure: 150/97 (RESP 16, PULSE 63, LEFT,) Cuff size: wrist Heart Rate: 61 O2 Saturation: 98 (PAPER MASK) Height: 5 ft 4 in Weight: 123 lb 8 oz (CLOTHES) Body Mass Index: 21.2 BMI Classification: Healthy weight Impression and Plan Snoring but no significant sleep disordered breathing. An oral appliance can also be used for snoring if this is an issue. This would require a dental consultation. Patient cautioned not to use other online appliances as can cause bite issues. A list of accredited dentists in [facility] and one local dentist who makes oral appliances is available in office. Patient is advised to check if insurance will cover. An ENT consult can also be helpful to determine if any other treatment is an option. Patient had two prolong awakenings during the night of the study. Insomnia is probable. Insomnia is generally caused by an irregular sleep schedule, spending too much time in bed, napping, caffeine, electronics, lack of a relaxing bedtime ritual and clock watching. Other factors can include anxiety/depression, pain, medications, and obstructive sleep apnea. * Maintain a healthy weight * Avoid alcohol consumption near bedtime * The patient is cautioned about driving until sleepiness is completely resolved. * Return as needed for follow up. I will response compliance at that time. Counseling Topics: Weight control Visit Type: In Office Time Spent with Patient (minutes): 15 Provider Statement: I spent 100% of the Face to Face Visit with the patient with greater than 50% spent counseling the patient and coordination of care.
== END 2021-07-27 08:31 | disposition home or self-care (01) ==
LOC: SC 08:30
PROVIDERS: ATTEND Nurse Practitioner Family
DX: R06.83 Snoring (principal)
CPT/HCPCS: 99212

== ENCOUNTER 2021-11-25 06:50 | Outpatient (CLI) | payer OTHER ==
--- NOTE | 2021-11-25 09:54 | Ultrasound Report ---
PROCEDURE: Pelvic w/Transvaginal INDICATIONS: ABN UTERINE BLEEDING TECHNIQUE: Real-time scanning was performed of the pelvic organs, with image documentation. Additional endovagi nal scanning was necessary due to incomplete visualization of the adnexal and endometrial structures by transabdominal scanning. COMPARISON: None. FINDINGS: Uterus: Uterus is retroverted and borderline enlarged in size at 10.5 x 5.1 x 6.7 cm. The myometriu m is heterogeneous containing several hypoechoic masses. There is a subserosal, exophytic fibroid anca sing from the anterior body measuring 5.7 x 4.4 x 4.7 cm. And demonstrates intrinsic echogenicity sug gesting calcification. There is a density, peripherally calcified anterior fundal fibroid measuring 3 .5 cm, and a posterior submucosal fibroid measuring 1.2 cm. This slightly indents on the endometrial stripe. The endometrium measures 11 mm in combined thickness. There is increased vascularity in the submucosal fibroid, but otherwise normal vascularity in the uterus. There are several nabothian cysts in the cervix. . Ovaries: Neither ovary was well seen. Other: No pathologic free abdominal or pelvic fluid. IMPRESSION: 1. No submucosal, peripherally hypervascular fibroid immediately adjacent to the endometrium may caus e abnormal uterine bleeding. 2. Prominent size uterus with several other fibroids. Reviewed by: Shayla Machuca MD on 11/25/2021 9:53 AM PDT Approved by: Shayla Machuca MD on 11/25/2021 9:53 AM PDT Station ID: [id number]
== END 2021-11-25 06:51 | disposition home or self-care (01) ==
LOC: DI 06:50
PROVIDERS: ATTEND Obstetrics & Gynecology
DX: D25.2 Subserosal leiomyoma of uterus (principal); D25.0 Submucous leiomyoma of uterus

== ENCOUNTER 2022-06-02 12:14 | Outpatient (CLI) | payer OTHER ==
--- NOTE | 2022-06-05 13:45 | Mammography Report ---
BILATERAL DIGITAL DIAGNOSTIC MAMMOGRAM 3D/2D: 06/02/2022 CLINICAL: Patient returns for a 6 month follow up of the left breast, due for bilateral exam. Comparison is made to exams dated: 03/17/2021 mammogram, 08/12/2020 mammogram, 07/20/2020 mammogram, 05/08 mammogram, and 04/19/2018 mammogram - [facility]. Both breasts are heterogeneously dense, which may obscure small masses (category c / 51-75% glandular tissue). Prior asymmetry seen on screening in 2020 is no longer seen in the left breast in the posterior depth in the inferior aspect. The 0.6 cm cyst, possibly incidental, in the left breast at 4- 5 o'clock middle depth is less promine nt and correlates with previous ultrasound findings. No other significant masses, calcifications, or other findings are seen in either breast. Mammograms are otherwise stable. IMPRESSION: INCOMPLETE: NEEDS ADDITIONAL IMAGING EVALUATION Mammograms are stable. Ultrasound is recommended to confirm stability of the complicated cyst in the left breast. This was p erformed immediately following this exam. Based on the Tyrer Cuzick model (a risk assessment model) the patients lifetime risk is 12.2% and he r 10 year risk is 3.5%. According to the ACR, ACS, and NCCN guidelines, an annual breast MRI exam margaret ng with mammogram is recommended if the patients lifetime risk is 20% or greater. This exam was interpreted at Station ID: [id number]. NOTE: For mammograms, a report in lay terms will be sent to the patient. Approximately 15% of breast malignancies will not be visualized mammographically. In the management of a palpable breast mass, a negative mammogram must not discourage biopsy of a clinically suspicious lesion. Electronically Signed By: Shayla garcia/:06/02/2022 13:27:11 ACR BI-RADS Category 0: Incomplete 3340F PARENCHYMAL PATTERN: (D) - The breast(s) demonstrate(s) heterogeneously dense fibroglandular parenchy ma. BI-RADS CATEGORY: (0) - 0 Ultrasound [id number] Immediate follow-up LATERALITY: (B)
--- NOTE | 2022-06-05 13:45 | Ultrasound Report ---
LIMITED ULTRASOUND OF LEFT BREAST: 06/02/2022 CLINICAL: 6 month follow-up of cysts. Comparison is made to exams dated: 06/02/2022 mammogram, 03/29/2021 ultrasound, 03/17/2021 mammogram, 08/12/2020 ultrasound, 08/12/2020 mammogram, and 07/20/2020 mammogram - [facility]. Color flow ultrasound of the left breast 3-4 o'clock region was performed. Rudolph scale images of the real-time examination were reviewed. There is a 0.5 cm x 0.4 cm x 0.5 cm round cyst in the left breast at 3-4 o'clock middle depth 6 cm fr om the nipple. This round cyst is nearly anechoic wiith a well-defined boundary, internal echoes, an d posterior acoustic enhancement. This correlates with mammography findings. Color flow imaging dem onstrates that there is no vascularity present. The adjacent cyst seen previously has resolved. Ther e is a benign intramammary lymph node at 4:00. IMPRESSION: BENIGN There is no sonographic evidence of malignancy. The 0.5 cm x 0.4 cm x 0.5 cm round cyst in the left breast is nearly simple, has shown almost two yea rs of stability and is therefore benign. Return to annual mammogram screening schedule is recommended. Findings and recommendations were con veyed to the patient at time of exam. This exam was interpreted at Station ID: [id number]. Electronically Signed By: Shayla garcia/:06/02/2022 14:51:17 letter sent: No_Letter Ultrasound BI-RADS: 2 Benign BI-RADS CATEGORY: (2) - 2 Mammogram [id number] return to screening LATERALITY: (B)
== END 2022-06-02 12:15 | disposition home or self-care (01) ==
LOC: DI 12:14
PROVIDERS: ATTEND Physician Assistant Medical
DX: N60.02 Solitary cyst of left breast (principal)

== ENCOUNTER 2023-06-01 09:25 | Outpatient (CLI) | payer OTHER ==
[2023-06-01 12:23] LABS: BASOPHILS % (AUTO) 0.8 %; EOSINOPHILS # (AUTO) 0.5 10^3/uL (0.0-0.7); EOSINOPHILS % (AUTO) 9.2 %; HCT - HEMATOCRIT 42.4 % (37.0-47.0); HGB - HEMOGLOBIN 14.1 g/dL (12.0-16.0); LYMPHOCYTES # (AUTO) 1.9 10^3/uL (1.5-3.5); LYMPHOCYTES % (AUTO) 37.5 %; MEAN CORPUSCULAR HEMOGLOBIN 33.7 pg (27.0-31.0); MEAN CORPUSCULAR HGB CONC 33.3 g/dL (32.0-36.0); MEAN CORPUSCULAR VOLUME 101.4 fL (81.0-99.0); MEAN PLATELET VOLUME 10.9 fL (7.9-10.8); MONOCYTES # (AUTO) 0.3 10^3/uL (0.0-1.0); NEUTROPHILS # (AUTO) 2.3 10^3/uL (1.5-6.6); NEUTROPHILS % (AUTO) 46.5 %; PLT - PLATELET COUNT 167 10^3/uL (130-450); RED BLOOD COUNT 4.18 10^6/uL (4.20-5.40); RED CELL DISTRIBUTION WIDTH 11.9 % (12.0-15.0)
[2023-06-01 12:50] LABS: ALBUMIN 4.1 g/dL (3.2-5.5); ALBUMIN/GLOBULIN RATIO 1.5 (1.0-2.2); ALKALINE PHOSPHATASE 72 IU/L (42-121); ALT ALANINE AMINOTRANSFERASE 31 IU/L (10-60); AST ASPARTATE AMINOTRANSFERASE 23 IU/L (10-42); BILIRUBIN,TOTAL 0.3 mg/dL (0.2-1.0); BUN - BLOOD UREA NITROGEN 13 mg/dL (6-20); CALCIUM 9.2 mg/dL (8.5-10.3); CARBON DIOXIDE - CO2 32 mmol/L (21-32); CHLORIDE 106 mmol/L (101-111); CHOL/HDL RATIO 3.8 (<4.4); CHOLESTEROL 197 mg/dL; CREATININE 0.6 mg/dL (0.6-1.3); GFR - MDRD 104 (>89); GLUCOSE 108 mg/dL (74-104); HDL CHOLESTEROL 52 mg/dL; LDL CHOLESTEROL,CALCULATED 116 mg/dL; LDL/HDL RATIO 2.2 (<4.4); POTASSIUM 4.2 mmol/L (3.5-4.5); SODIUM 140 mmol/L (135-145); TOTAL PROTEIN 6.9 g/dL (6.4-8.9); TRIGLYCERIDES 146 mg/dL (48-352); VLDL CHOLESTEROL 29 mg/dL
[2023-06-01 12:55] LABS: THYROID STIMULATING HORMONE 1.22 uIU/mL (0.34-5.60)
== END 2023-06-01 09:26 | disposition home or self-care (01) ==
LOC: LAB.N 09:25
PROVIDERS: ATTEND Physician Assistant Medical
DX: Z00.00 Encounter for general adult medical examination without abnormal findings (principal); D53.9 Nutritional anemia, unspecified; E78.00 Pure hypercholesterolemia, unspecified
CPT/HCPCS: 36415; 80053; 80061; 83721; 84443; 85025

== ENCOUNTER 2023-07-06 08:20 | Outpatient (CLI) | payer OTHER ==
--- NOTE | 2023-07-09 08:09 | Mammography Report ---
BILATERAL DIGITAL SCREENING MAMMOGRAM 3D/2D: 07/06/2023 CLINICAL: Routine screening. Comparison is made to exams dated: 06/02/2022 mammogram, 03/17/2021 mammogram, 08/12/2020 mammogram, 07/20 mammogram, 05/08/2019 mammogram, and 04/19/2018 mammogram - [facility]. Both breasts are heterogeneously dense, which may obscure small masses (category c / 51-75% glandular tissue). There is a focal asymmetry in the right breast at 6 o'clock posterior depth. This is increased in si ze. No other significant masses, calcifications, or other findings are seen in either breast. IMPRESSION: INCOMPLETE: NEEDS ADDITIONAL IMAGING EVALUATION The focal asymmetry in the right breast is indeterminate. Additional views with possible ultrasound are recommended. Based on the Tyrer Cuzick model (a risk assessment model) the patient's lifetime risk is 13.4% and he r 10 year risk is 4.1%. According to the ACR, ACS, and NCCN guidelines, an annual breast MRI exam margaret ng with mammogram is recommended if the patient's lifetime risk is 20% or greater. This exam was interpreted at Station ID: [id number]. NOTE: For mammograms, a report in lay terms will be sent to the patient. Approximately 15% of breast malignancies will not be visualized mammographically. In the management of a palpable breast mass, a negative mammogram must not discourage biopsy of a clinically suspicious lesion. Electronically Signed By: Cookie lozada/luis:07/06/2023 13:53:52 ACR BI-RADS Category 0: Incomplete 3340F PARENCHYMAL PATTERN: (D) - The breast(s) demonstrate(s) heterogeneously dense fibroglandular parenchy ma. BI-RADS CATEGORY: (0) - 0 Mammo and [place] [id number] Immediate follow-up LATERALITY: (B)
== END 2023-07-06 08:21 | disposition home or self-care (01) ==
LOC: DI 08:20
DX: Z12.31 Encounter for screening mammogram for malignant neoplasm of breast (principal); R92.8 Other abnormal and inconclusive findings on diagnostic imaging of breast; R92.333 Mammographic heterogeneous density, bilateral breasts

== ENCOUNTER 2023-10-05 09:48 | Outpatient (CLI) | payer OTHER ==
--- NOTE | 2023-10-08 09:44 | Mammography Report ---
UNILATERAL RIGHT DIGITAL DIAGNOSTIC MAMMOGRAM 3D/2D WITH SPOT COMPRESSION: 10/05/2023 CLINICAL: Patient returns today to evaluate a focal asymmetry in the right breast. Comparison is made to exams dated: 07/06/2023 mammogram, 06/02/2022 mammogram, 07/20/2020 mammogram, mammogram, and 04/19/2018 mammogram - [facility]. The right breast is heterogeneously dense, which may obscure small masses (category c / 51-75% glandu lar tissue). There is a focal asymmetry in the right breast at 6 o'clock middle depth. This is increased in size. No other significant masses or calcifications are seen in the breast. IMPRESSION: INCOMPLETE: NEEDS ADDITIONAL IMAGING EVALUATION The focal asymmetry in the right breast resembles a cyst and is indeterminate. A targeted ultrasound is recommended and will immediately follow. Based on the Tyrer Cuzick model (a risk assessment model) the patient's lifetime risk is 13.4% and he r 10 year risk is 4.1%. According to the ACR, ACS, and NCCN guidelines, an annual breast MRI exam margaret ng with mammogram is recommended if the patient's lifetime risk is 20% or greater. This exam was interpreted at Station ID: [id number]. NOTE: For mammograms, a report in lay terms will be sent to the patient. Approximately 15% of breast malignancies will not be visualized mammographically. In the management of a palpable breast mass, a negative mammogram must not discourage biopsy of a clinically suspicious lesion. Electronically Signed By: Juan Francisco Rudolph M.D. slc/:10/05/2023 10:08:39 ACR BI-RADS Category 0: Incomplete 3340F PARENCHYMAL PATTERN: (D) - The breast(s) demonstrate(s) heterogeneously dense fibroglandular parfreddyy ma. BI-RADS CATEGORY: (0) - 0 Ultrasound [id number] Immediate follow-up LATERALITY: (B)
--- NOTE | 2023-10-08 09:44 | Ultrasound Report ---
LIMITED ULTRASOUND OF RIGHT BREAST: 10/05/2023 CLINICAL: Patient returns today to evaluate a focal asymmetry in the right breast. Comparison is made to exams dated: 07/06/2023 mammogram, 06/02/2022 mammogram, 07/20/2020 mammogram, an d 10/05/2023 mammogram - [facility]. Color flow and real-time ultrasound of the right breast 6 o'clock region were performed. Rudolph scale images of the real-time examination were reviewed. There is a benign 0.4 cm x 0.4 cm x 0.2 cm oval simple cyst in the right breast at 6 o'clock middle d epth 4 cm from the nipple. This oval simple cyst is anechoic. This correlates with mammography find ings. Color flow imaging demonstrates that there is no vascularity present. IMPRESSION: BENIGN There is no sonographic evidence of malignancy. The 0.4 cm simple cyst in the right breast is benign. A 1 year screening mammogram is recommended. Exam findings were conveyed to the patient. This exam was interpreted at Station ID: [id number]. Electronically Signed By: Juan Francisco Rudolph M.D. slc/:10/05/2023 10:21:25 Ultrasound BI-RADS: 2 Benign BI-RADS CATEGORY: (2) - 2 RECOMMENDATION: (ANNUAL) - Recommend routine annual screening mammography. [id number] 1 year screening LATERALITY: (B)
== END 2023-10-05 09:49 | disposition home or self-care (01) ==
LOC: DI 09:48
PROVIDERS: ATTEND Physician Assistant Medical
DX: N60.01 Solitary cyst of right breast (principal); R92.331 Mammographic heterogeneous density, right breast

== ENCOUNTER 2023-10-15 08:11 | Outpatient (CLI) | payer OTHER | END 2023-10-15 08:12 | disposition home or self-care (01) | LOC: LAB.N 08:11 | PROVIDERS: ATTEND Physician Assistant Medical | DX: Z11.1 Encounter for screening for respiratory tuberculosis (principal) | CPT/HCPCS: 36415; 81599 ==